=== PATIENT | male | born 1955 | race Caucasian/White ===

== ENCOUNTER 2017-05-27 03:35 | Emergency (ER) | payer MEDICARE, BC ==
[2017-05-27 03:58] LABS: APPEARANCE,URINE Clear (CLEAR); BILIRUBIN,URINE Negative (NEGATIVE); COLOR,URINE Yellow (YELLOW); GLUCOSE, URINE (UA) Negative (NEGATIVE); KETONES,URINE Negative (NEGATIVE); LEUKOCYTE ESTERASE ,URINE Negative (NEGATIVE); NITRATE,URINE Negative (NEGATIVE); OCCULT BLOOD,URINE Negative (NEGATIVE); PROTEIN,URINE Negative (NEGATIVE); UROBILINOGEN,URINE 0.2 mg/dL (0.2-1.0)
[2017-05-27 04:08] LABS: BASOPHILS % (AUTO) 1.6 % (0.0-5.0); EOSINOPHILS % (AUTO) 2.3 % (0.0-8.0); HEMATOCRIT 39.9 % (42-54); LYMPHOCYTES % (AUTO) 20.1 % (21.0-51.0); MEAN CORPUSCULAR HEMOGLOBIN 29.6 pg (27.0-33.0); MEAN CORPUSCULAR HGB CONC 32.6 g/dL (32.0-36.0); MONOCYTES % (AUTO) 7.6 % (3.0-13.0); NEUTROPHILS % (AUTO) 68.4 % (40.0-77.0); PLATELET COUNT (AUTO) 472 K/uL (130-400); RED BLOOD CELL COUNT(AUTO) 4.39 MIL/uL (4.50-6.20); RED CELL DISTRIBUTION WIDTH 15.1 % (11.0-15.5); WHITE BLOOD COUNT (AUTO) 11.7 K/uL (4.8-10.8)
[2017-05-27 04:30] LABS: CREATININE 1.1 mg/dL (0.5-1.5); POTASSIUM 4.7 mmol/L (3.5-5.1)
== END 2017-05-27 06:07 | disposition home or self-care (01) ==
LOC: EDH 03:35
DX: R33.9 Retention of urine, unspecified (principal); I10 Essential (primary) hypertension; R10.9 Unspecified abdominal pain; R11.0 Nausea
CPT/HCPCS: 36415; 51702; 80048; 81003; 85025; 96360

== ENCOUNTER 2017-08-04 01:47 | Emergency (ER) | payer MEDICARE, BC ==
[2017-08-04 03:13] LABS: APPEARANCE,URINE Clear (CLEAR); BILIRUBIN,URINE Negative (NEGATIVE); COLOR,URINE Yellow (YELLOW); GLUCOSE, URINE (UA) Negative (NEGATIVE); KETONES,URINE Negative (NEGATIVE); LEUKOCYTE ESTERASE ,URINE Negative (NEGATIVE); NITRATE,URINE Negative (NEGATIVE); OCCULT BLOOD,URINE Negative (NEGATIVE); PROTEIN,URINE Negative (NEGATIVE); UROBILINOGEN,URINE 0.2 mg/dL (0.2-1.0)
== END 2017-08-04 04:17 | disposition home or self-care (01) ==
LOC: EDH 01:47
DX: R33.9 Retention of urine, unspecified (principal); I10 Essential (primary) hypertension; E78.5 Hyperlipidemia, unspecified
CPT/HCPCS: 51702; 81003

== ENCOUNTER 2018-06-06 08:36 | Day surgery (SDC) | payer MEDICARE ==
[2018-06-05 14:49] LABS: BASOPHILS % (AUTO) 0.8 % (0.0-5.0); EOSINOPHILS % (AUTO) 1.7 % (0.0-8.0); HEMATOCRIT 33.6 % (42-54); LYMPHOCYTES % (AUTO) 12.8 % (21.0-51.0); MEAN CORPUSCULAR HEMOGLOBIN 27.4 pg (27.0-33.0); MEAN CORPUSCULAR HGB CONC 32.4 g/dL (32.0-36.0); MEAN CORPUSCULAR VOLUME 84.4 fL (79-99); MONOCYTES % (AUTO) 8.4 % (3.0-13.0); NEUTROPHILS % (AUTO) 76.3 % (40.0-77.0); RED BLOOD CELL COUNT(AUTO) 3.98 MIL/uL (4.50-6.20); RED CELL DISTRIBUTION WIDTH 16.5 % (11.0-15.5); WHITE BLOOD COUNT (AUTO) 11.4 K/uL (4.8-10.8)
[2018-06-05 14:56] VITALS: BP 149/83
[2018-06-05 15:13] LABS: POTASSIUM 3.9 mmol/L (3.5-5.1)
[2018-06-05 15:14] LABS: PLATELET COUNT (AUTO) 1029 K/uL (130-400)
[2018-06-06] VITALS (20 sets, daily range): BP systolic 90–122; BP diastolic 54–77
[~2018-06-06] VITALS: Ht 172.7 cm; Wt 124.2 kg
[~2018-06-06 08:36] MED LIST: CEFTRIAXONE SODIUM 1 GM IVP SCH; FINA5TAB41 PO; LEVE750T10 PO; LISI-613 PO; SIMV20TA6 PO; TAMS0.4C32 PO; TRIA1CAP6 PO; VITAMIN B12 PO
[2018-06-06] MEDS: GENTAMICIN 80 MG/NS 100 ML PB 100 ML IV SCH ×2 (09:00→12:00)
[2018-06-06] MEDS ORDERED: LACTATED RINGERS 1000ML 1,000 ML IV ONE (09:34)
[2018-06-06] MEDS: CEFTRIAXONE SODIUM 1 GM ONE ×2 (09:56→12:20)
[2018-06-06] MEDS ORDERED: LIDOCAINE PF 2% 5ML ABBOJECT ONE (11:04)
[2018-06-06] MEDS ORDERED: DEXAMETHASONE SOD PHOSPHATE 10MG/ML 1ML VIAL ONE (11:04)
[2018-06-06] MEDS ORDERED: FENTANYL CITRATE PF 50 MCG/1 ML 2ML VIAL ONE ×3 (11:06→13:57)
[2018-06-06] MEDS ORDERED: ONDANSETRON HCL 4 MG/2 ML VIAL ONE (11:06)
[2018-06-06] MEDS ORDERED: MIDAZOLAM HCL 1 MG/ML 2ML VIAL ONE (11:06)
[2018-06-06] MEDS ORDERED: PROPOFOL 10 MG/ML 20ML VIAL IV ONE (11:06)
[2018-06-06] MEDS ORDERED: MEPERIDINE-PF 25 MG/ML SYG ONE (14:08)
[2018-06-06] MEDS ORDERED: PHENAZOPYRIDINE HCL 200 MG TABLET ONE (14:52)
== END 2018-06-06 15:46 | disposition home or self-care (01) ==
LOC: DAH 08:36
PROVIDERS: ATTEND Urology
DX: N40.1 Benign prostatic hyperplasia with lower urinary tract symptoms (principal); R33.8 Other retention of urine; Z98.890 Other specified postprocedural states; I10 Essential (primary) hypertension; G40.909 Epilepsy, unspecified, not intractable, without status epilepticus; G47.30 Sleep apnea, unspecified; Z85.038 Personal history of other malignant neoplasm of large intestine; Z79.899 Other long term (current) drug therapy; Z87.891 Personal history of nicotine dependence; Z93.3 Colostomy status
CPT/HCPCS: 36415 ×2; 52648; 80048; 85025; 85049; A4218; A4340; A4354; A4358; J0696; J1100; J1580; J2001; J2175; J2250; J2405; J2704; J3010 ×3; J7030; J7120

== ENCOUNTER 2018-06-07 21:02 | Inpatient (IN) | payer MEDICARE ==
[~2018-06-07] VITALS: Ht 203.2 cm; Wt 127.9 kg
[~2018-06-07 21:02] MED LIST changes: -CEFTRIAXONE SODIUM 1 GM IVP SCH
[2018-06-07] MEDS ORDERED: SODIUM CHLORIDE 0.9% 1000ML 1,000 ML IV ONE (21:26)
[2018-06-07] MEDS ORDERED: ACETAMINOPHEN 325 MG TAB ONE (21:26)
[2018-06-07] MEDS ORDERED: CEFTRIAXONE SODIUM 1 GM ONE (22:00)
[2018-06-07 22:13] LABS: BASOPHILS % (AUTO) 0.7 % (0.0-5.0); EOSINOPHILS % (AUTO) 0.3 % (0.0-8.0); HEMATOCRIT 32.3 % (42-54); LYMPHOCYTES % (AUTO) 1.1 % (21.0-51.0); MEAN CORPUSCULAR HEMOGLOBIN 27.5 pg (27.0-33.0); MEAN CORPUSCULAR HGB CONC 32.7 g/dL (32.0-36.0); MEAN CORPUSCULAR VOLUME 84.3 fL (79-99); MONOCYTES % (AUTO) 0.6 % (3.0-13.0); NEUTROPHILS % (AUTO) 97.3 % (40.0-77.0); RED BLOOD CELL COUNT(AUTO) 3.83 MIL/uL (4.50-6.20)
[2018-06-07 22:24] LABS: PARTIAL THROMBOPLASTIN TIME 27.3 SEC (26.3-35.5); PROTHROMBIN TIME 10.5 SEC (9.6-11.6)
[2018-06-07 22:25] LABS: CARBON DIOXIDE 27 mmol/L (21-32); CHLORIDE 100 mmol/L (101-111); CREATININE 1.2 mg/dL (0.5-1.5); GLOMERULAR FILTR. RATE CALC 65 mL/min (>60); GLUCOSE,RANDOM 150 mg/dL (70-105); POTASSIUM 3.9 mmol/L (3.5-5.1); SODIUM SERUM 136 mmol/L (136-145); UREA NITROGEN, BLOOD 16 mg/dL (7-18)
[2018-06-07 22:28] LABS: APPEARANCE,URINE Clear (CLEAR); BILIRUBIN,URINE Small (NEGATIVE); GLUCOSE, URINE (UA) Negative (NEGATIVE); KETONES,URINE Negative (NEGATIVE); LEUKOCYTE ESTERASE ,URINE Small (NEGATIVE); NITRATE,URINE Positive (NEGATIVE); OCCULT BLOOD,URINE Large (NEGATIVE); PH,URINE 5.5 (5.0-8.0); PROTEIN,URINE POS 1+ (NEGATIVE)
[2018-06-07 22:30] LABS: PLATELET COUNT (AUTO) 787 K/uL (130-400)
[2018-06-07 22:31] LABS: COLOR,URINE AMBER (YELLOW)
[2018-06-07 22:36] LABS: ALANINE AMINOTRANSFERASE 26 U/L (12-78); ALBUMIN 2.3 g/dL (3.5-5.0); ASPARTATE AMINOTRANSFERASE 20 U/L (10-37); BILIRUBIN,TOTAL 0.3 mg/dL (0.2-1.0); CREATINE KINASE, TOTAL 21 U/L (21-232); MYOGLOBIN 34 ng/mL (10-92); TOTAL PROTEIN, SERUM 7.3 g/dL (6.0-8.3); TROPONIN I < 0.04 ng/mL (0.00-0.06)
[2018-06-07] MEDS ORDERED: SODIUM CHLORIDE 0.9% 1000ML 3,000 ML IV ONE (22:47)
[2018-06-07 22:48] LABS: BACTERIA,URINE None Seen /HPF (None Seen); SQUAMOUS EPITHELIAL CELL,UR Rare /HPF (0-2)
[2018-06-07] MEDS ORDERED: MAGNESIUM HYDROXIDE 30 ML/UDCUP PO PRN (23:30)
[2018-06-07] MEDS ORDERED: ONDANSETRON HCL 4 MG/2 ML VIAL IV PRN (23:30)
[2018-06-07] MEDS: CEFTRIAXONE SODIUM 2 GM VIAL IVP SCH (23:30)
[2018-06-07] MEDS ORDERED: ACETAMINOPHEN 325 MG TAB PO PRN (23:30)
[2018-06-07] MEDS ORDERED: VANCOMYCIN PROTOCOL PER PHARMACY IV PRN (23:30)
[2018-06-08] MEDS ORDERED: VANCOMYCIN PROTOCOL PER PHARMACY IV PRN (00:30)
[2018-06-08] MEDS: VANCOMYCIN 1GM+NS 250ML 250 ML IV SCH ×2 (00:30→01:59)
[2018-06-08 00:49] VITALS: BP 111/66
[2018-06-08] MEDS: CEFTRIAXONE SODIUM 2 GM VIAL IVP SCH (01:40)
[2018-06-08] MEDS: SODIUM CHLORIDE 0.9% 1000ML 1,000 ML IV SCH ×4 (03:57→20:14)
[2018-06-08 04:01] VITALS: BP 111/64
[2018-06-08 07:08] LABS: BASOPHILS % (AUTO) 0.3 % (0.0-5.0); EOSINOPHILS % (AUTO) 0.2 % (0.0-8.0); HEMATOCRIT 28.1 % (42-54); LYMPHOCYTES % (AUTO) 7.1 % (21.0-51.0); MEAN CORPUSCULAR HGB CONC 32.1 g/dL (32.0-36.0); MEAN CORPUSCULAR VOLUME 84.2 fL (79-99); MONOCYTES % (AUTO) 3.3 % (3.0-13.0); NEUTROPHILS % (AUTO) 89.1 % (40.0-77.0); RED BLOOD CELL COUNT(AUTO) 3.34 MIL/uL (4.50-6.20); RED CELL DISTRIBUTION WIDTH 16.6 % (11.0-15.5); WHITE BLOOD COUNT (AUTO) 21.5 K/uL (4.8-10.8)
[2018-06-08 07:16] LABS: PLATELET COUNT (AUTO) 795 K/uL (130-400)
[2018-06-08 07:19] VITALS: BP 103/61
[2018-06-08 07:32] LABS: ALBUMIN 1.9 g/dL (3.5-5.0); BILIRUBIN,TOTAL 0.2 mg/dL (0.2-1.0); CREATININE 1.1 mg/dL (0.5-1.5); POTASSIUM 3.9 mmol/L (3.5-5.1); TOTAL PROTEIN, SERUM 6.2 g/dL (6.0-8.3)
[2018-06-08] MEDS: LISINOPRIL 20 MG TABLET PO SCH (09:02)
[2018-06-08] MEDS: CYANOCOBALAMIN (VITAMIN B-12) 1,000 MCG TABLET PO SCH ×2 (09:02→20:13)
[2018-06-08] MEDS: ENOXAPARIN SODIUM 40 MG/0.4 ML SYRINGE SQ SCH (09:02)
[2018-06-08] MEDS: TRIAMTERENE/HYDROCHLOROTHIAZIDE 37.5/25 MG CAP PO SCH (09:02)
[2018-06-08] MEDS: LEVETIRACETAM 500 MG TABLET PO SCH ×2 (09:02→20:13)
[2018-06-08] MEDS: FINASTERIDE 5 MG TABLET PO SCH (09:02)
[2018-06-08] MEDS: PANTOPRAZOLE SODIUM 40 MG TABLET.DR PO SCH (09:03)
[2018-06-08 11:23] VITALS: BP 131/67
[2018-06-08] MEDS ORDERED: COMPOUND IV REFRIGERATED 1 EACH IVSOLN MISC PRN (11:30)
[2018-06-08] MEDS: ZOSYN 3.375GM+NS 50ML 50 ML IV SCH ×2 (12:22→20:13)
[2018-06-08] MEDS: VANCOMYCIN 1.5 GM in SODIUM CHLORIDE 0.9% 250 ML IV SCH (14:33)
[2018-06-08 16:10] VITALS: BP 153/77
[2018-06-08] MEDS ORDERED: ACETAMINOPHEN 325 MG TAB PO PRN (17:45)
[2018-06-08] MEDS: MORPHINE SULFATE 2 MG/ML 1ML SYG IVP PRN (18:47)
[2018-06-08 20:00] VITALS: BP 122/68
[2018-06-08] MEDS: SIMVASTATIN 20 MG TABLET PO SCH (20:12)
[2018-06-08] MEDS: TAMSULOSIN HCL 0.4 MG CAP.ER.24H PO SCH (20:13)
[2018-06-09] VITALS (7 sets, daily range): BP systolic 117–152; BP diastolic 70–83
[2018-06-09] MEDS: MORPHINE SULFATE 2 MG/ML 1ML SYG IVP PRN ×2 (00:36→09:15)
[2018-06-09] MEDS: SODIUM CHLORIDE 0.9% 1000ML 1,000 ML IV SCH ×4 (01:36→14:10)
[2018-06-09] MEDS: VANCOMYCIN 1.5 GM in SODIUM CHLORIDE 0.9% 250 ML IV SCH ×2 (02:16→14:29)
[2018-06-09 04:06] LABS: MEAN CORPUSCULAR HEMOGLOBIN 27.3 pg (27.0-33.0); MEAN CORPUSCULAR HGB CONC 32.6 g/dL (32.0-36.0); MEAN CORPUSCULAR VOLUME 83.6 fL (79-99); NUCLEATED RED BLOOD CELLS 0.1 % (0.0-0.19); RED BLOOD CELL COUNT(AUTO) 3.23 MIL/uL (4.50-6.20); RED CELL DISTRIBUTION WIDTH 16.6 % (11.0-15.5); WHITE BLOOD COUNT (AUTO) 11.9 K/uL (4.8-10.8)
[2018-06-09 04:32] LABS: CRP QUANTITATIVE 225.2 mg/L (0.00-9.0); POTASSIUM 3.9 mmol/L (3.5-5.1)
[2018-06-09 04:37] LABS: PLATELET COUNT (AUTO) 733 K/uL (130-400)
[2018-06-09] MEDS: ZOSYN 3.375GM+NS 50ML 50 ML IV SCH ×3 (05:36→20:52)
[2018-06-09] MEDS: TRIAMTERENE/HYDROCHLOROTHIAZIDE 37.5/25 MG CAP PO SCH ×2 (08:48→09:14)
[2018-06-09] MEDS: LISINOPRIL 20 MG TABLET PO SCH (08:50)
[2018-06-09] MEDS: FINASTERIDE 5 MG TABLET PO SCH (08:50)
[2018-06-09] MEDS: PANTOPRAZOLE SODIUM 40 MG TABLET.DR PO SCH (08:50)
[2018-06-09] MEDS: CYANOCOBALAMIN (VITAMIN B-12) 1,000 MCG TABLET PO SCH ×2 (08:50→20:53)
[2018-06-09] MEDS: LEVETIRACETAM 500 MG TABLET PO SCH ×2 (08:51→20:54)
[2018-06-09] MEDS: ENOXAPARIN SODIUM 40 MG/0.4 ML SYRINGE SQ SCH (09:20)
[2018-06-09] MEDS: IRON SUCROSE COMPLEX 100 MG in SODIUM CHLORIDE 0.9% 50 ML IV SCH (17:30)
[2018-06-09] MEDS ORDERED: COMPOUND IV MISC 1 EACH IVSOLN MISC PRN (18:45)
[2018-06-09] MEDS: TAMSULOSIN HCL 0.4 MG CAP.ER.24H PO SCH (20:52)
[2018-06-09] MEDS: SIMVASTATIN 20 MG TABLET PO SCH (20:53)
[2018-06-09] MEDS ORDERED: EPOETIN ALFA 10,000 UNIT/ML VIAL SQ ONE (21:00)
[2018-06-09] MEDS ORDERED: PHARMACY COMMUNICATION MISC SCH (21:00)
[2018-06-09] MEDS ORDERED: BACITRACIN 28.4 GM OINT TP SCH (21:00)
[2018-06-09] MEDS ORDERED: IBUPROFEN 800 MG TAB PO PRN (23:45)
[2018-06-10] MEDS: SODIUM CHLORIDE 0.9% 1000ML 1,000 ML IV SCH (02:03)
[2018-06-10] MEDS: VANCOMYCIN 1.5 GM in SODIUM CHLORIDE 0.9% 250 ML IV SCH (02:12)
[2018-06-10 03:00] VITALS: BP 134/76
[2018-06-10 03:44] LABS: HEMATOCRIT 27.2 % (42-54); MEAN CORPUSCULAR HEMOGLOBIN 26.5 pg (27.0-33.0); NUCLEATED RED BLOOD CELLS 0.1 % (0.0-0.19); PLATELET COUNT (AUTO) 663 K/uL (130-400); RED BLOOD CELL COUNT(AUTO) 3.28 MIL/uL (4.50-6.20); RED CELL DISTRIBUTION WIDTH 16.9 % (11.0-15.5); WHITE BLOOD COUNT (AUTO) 10.2 K/uL (4.8-10.8)
[2018-06-10 03:56] LABS: ALBUMIN 1.9 g/dL (3.5-5.0); CREATININE 1.1 mg/dL (0.5-1.5); POTASSIUM 3.6 mmol/L (3.5-5.1)
[2018-06-10 04:15] LABS: CRP QUANTITATIVE 167.5 mg/L (0.00-9.0)
[2018-06-10] MEDS: ZOSYN 3.375GM+NS 50ML 50 ML IV SCH (04:45)
[2018-06-10 08:02] VITALS: BP 132/86
[2018-06-10] MEDS ORDERED: SULF1TAB42 PO (08:43)
[2018-06-10] MEDS ORDERED: LEVO500T2 PO (08:43)
[2018-06-10] MEDS ORDERED: LEVOFLOXACIN 500 MG TABLET PO SCH (09:00)
[2018-06-10] MEDS ORDERED: SULFAMETHOX-TMP DS 800/160 TAB PO SCH (09:00)
[2018-06-10] MEDS: FINASTERIDE 5 MG TABLET PO SCH (09:08)
[2018-06-10] MEDS: PANTOPRAZOLE SODIUM 40 MG TABLET.DR PO SCH (09:08)
[2018-06-10] MEDS: TRIAMTERENE/HYDROCHLOROTHIAZIDE 37.5/25 MG CAP PO SCH (09:09)
[2018-06-10] MEDS: LEVETIRACETAM 500 MG TABLET PO SCH (09:09)
[2018-06-10] MEDS: CYANOCOBALAMIN (VITAMIN B-12) 1,000 MCG TABLET PO SCH (09:09)
[2018-06-10] MEDS: LISINOPRIL 20 MG TABLET PO SCH (09:09)
[2018-06-10] MEDS: ENOXAPARIN SODIUM 40 MG/0.4 ML SYRINGE SQ SCH (09:12)
[2018-06-10] MEDS: IRON SUCROSE COMPLEX 100 MG in SODIUM CHLORIDE 0.9% 50 ML IV SCH (09:15)
[2018-06-10] MEDS ORDERED: LEVO750T46 PO (11:30)
[2018-06-10 11:48] VITALS: BP 127/85
== END 2018-06-10 16:10 | disposition home or self-care (01) | DRG 698 ==
LOC: EDH 21:02 → EDHIP 23:10 → 2AH 06-08 00:21
PROVIDERS: ADMIT Internal Medicine; ATTEND Internal Medicine
DX: T83.511A Infection and inflammatory reaction due to indwelling urethral catheter, initial encounter (principal); A41.9 Sepsis, unspecified organism; R65.20 Severe sepsis without septic shock; N17.9 Acute kidney failure, unspecified; Z68.41 Body mass index [BMI] 40.0-44.9, adult; E44.0 Moderate protein-calorie malnutrition; C20 Malignant neoplasm of rectum; E66.01 Morbid (severe) obesity due to excess calories; E86.1 Hypovolemia; D50.9 Iron deficiency anemia, unspecified; E78.5 Hyperlipidemia, unspecified; G40.909 Epilepsy, unspecified, not intractable, without status epilepticus; G47.00 Insomnia, unspecified; I10 Essential (primary) hypertension; K59.00 Constipation, unspecified; N39.0 Urinary tract infection, site not specified; N40.0 Benign prostatic hyperplasia without lower urinary tract symptoms; Y84.6 Urinary catheterization as the cause of abnormal reaction of the patient, or of later complication, without mention of misadventure at the time of the procedure; Z80.1 Family history of malignant neoplasm of trachea, bronchus and lung; Z85.048 Personal history of other malignant neoplasm of rectum, rectosigmoid junction, and anus; Z85.46 Personal history of malignant neoplasm of prostate; Z90.81 Acquired absence of spleen; Z92.21 Personal history of antineoplastic chemotherapy; Z92.3 Personal history of irradiation; Z93.3 Colostomy status; Z96.642 Presence of left artificial hip joint; Z96.659 Presence of unspecified artificial knee joint; N30.90 Cystitis, unspecified without hematuria
CPT/HCPCS: 36415; 71045; 80048; 80053; 80202; 80339; 81001; 82040; 82550; 83540; 83550; 83605; 83874; 84484; 85025; 85027; 85610; 85730; 86140; 87040; 87077; 87088; 87186; 93005; 99291; A5061; J0696; J0885; J1650; J1756; J2405; J2543; J3370; J7030

== ENCOUNTER → 2020-05-04 | Outpatient (CLI) | payer MEDICARE ==
[~2020-05-04] MED LIST changes: +LEVO750T46 PO; +SIMV-43 PO; -SIMV20TA6 PO
== END | disposition home or self-care (01) ==
LOC: RAH 11:13
DX: Z01.818 Encounter for other preprocedural examination (principal)
CPT/HCPCS: 71046

== ENCOUNTER 2020-07-30 17:09 | Emergency (ER) | payer MEDICARE | END 2020-07-30 18:47 | disposition home or self-care (01) | LOC: EDSEX 17:09 → EDH 17:09 | DX: T83.091A Other mechanical complication of indwelling urethral catheter, initial encounter (principal); I10 Essential (primary) hypertension; Z85.038 Personal history of other malignant neoplasm of large intestine; Z87.891 Personal history of nicotine dependence | CPT/HCPCS: 99281 ==

== ENCOUNTER 2020-08-05 06:22 | Day surgery (SDC) | payer MEDICARE ==
[2020-08-02 12:14] LABS: BASOPHILS % (AUTO) 0.9 % (0.0-5.0); EOSINOPHILS % (AUTO) 7.3 % (0.0-8.0); HEMATOCRIT 36.8 % (42-54); LYMPHOCYTES % (AUTO) 19.5 % (21.0-51.0); MEAN CORPUSCULAR HEMOGLOBIN 29.6 pg (27.0-33.0); MEAN CORPUSCULAR HGB CONC 31.3 g/dL (32.0-36.0); MEAN CORPUSCULAR VOLUME 94.8 fL (79-99); MONOCYTES % (AUTO) 10.5 % (3.0-13.0); NEUTROPHILS % (AUTO) 61.3 % (40.0-77.0); PLATELET COUNT (AUTO) 450 K/uL (130-400); RED BLOOD CELL COUNT(AUTO) 3.88 MIL/uL (4.50-6.20); RED CELL DISTRIBUTION WIDTH 17.8 % (11.0-15.5); WHITE BLOOD COUNT (AUTO) 9.2 K/uL (4.8-10.8)
[2020-08-02 12:29] LABS: CREATININE 1.4 mg/dL (0.5-1.5); POTASSIUM 4.9 mmol/L (3.5-5.1)
[2020-08-04 14:29] VITALS: BP 146/74
[~2020-08-05] VITALS: Ht 170.2 cm; Wt 142.6 kg
[2020-08-05] VITALS (19 sets, daily range): BP systolic 118–143; BP diastolic 61–85
[~2020-08-05 06:22] MED LIST changes: -LEVO750T46 PO; -LISI-613 PO; +LISI10TA7 PO; +PREG150C46 PO
[2020-08-05] MEDS ORDERED: LACTATED RINGERS 1000ML 1,000 ML IV ONE (06:43)
[2020-08-05] MEDS ORDERED: CEFTRIAXONE SODIUM 1 GM ONE (06:43)
[2020-08-05] MEDS ORDERED: CEFTRIAXONE SODIUM 1 GM IVP ONE (08:00)
[2020-08-05] MEDS ORDERED: PROPOFOL 10 MG/ML 20ML VIAL IV ONE (08:02)
[2020-08-05] MEDS ORDERED: LIDOCAINE PF 2% 5ML ABBOJECT ONE (08:02)
[2020-08-05] MEDS ORDERED: ROCURONIUM 10MG/1ML SYR 10 MG/ML ML ONE (08:02)
[2020-08-05] MEDS ORDERED: FENTANYL CITRATE PF 50 MCG/1 ML 2ML VIAL ONE (08:03)
[2020-08-05] MEDS ORDERED: IOHEXOL-350 50ML VIAL IV ONE (08:05)
[2020-08-05] MEDS ORDERED: MIDAZOLAM HCL 1 MG/ML 2ML VIAL ONE (08:27)
[2020-08-05] MEDS ORDERED: PHENAZOPYRIDINE HCL 200 MG TABLET ONE (09:25)
== END 2020-08-05 11:23 | disposition home or self-care (01) ==
LOC: EDSEX → DAH 06:22
PROVIDERS: ATTEND Urology
DX: N28.9 Disorder of kidney and ureter, unspecified (principal); N13.30 Unspecified hydronephrosis; E66.01 Morbid (severe) obesity due to excess calories; I10 Essential (primary) hypertension; Z87.891 Personal history of nicotine dependence; K21.9 Gastro-esophageal reflux disease without esophagitis; E78.00 Pure hypercholesterolemia, unspecified; Z85.038 Personal history of other malignant neoplasm of large intestine; G40.909 Epilepsy, unspecified, not intractable, without status epilepticus; Z79.899 Other long term (current) drug therapy; Z20.828 Contact with and (suspected) exposure to other viral communicable diseases
CPT/HCPCS: 36415; 52332; 74420; 80048; 85025; 87426; 93005; A4215; A4221; A4222; A4223 ×2; A4358 ×2; A4510 ×2; A4600 ×2; A4663; A6260; C1769; C2617; J0696; J2001; J2250; J2704; J3010; J7030; J7120 ×2; Q9967; U0003

== ENCOUNTER 2020-12-02 06:26 | Day surgery (SDC) | payer MEDICARE ==
[2020-11-29 12:13] LABS: BASOPHILS % (AUTO) 0.4 % (0.0-5.0); EOSINOPHILS % (AUTO) 2.2 % (0.0-8.0); HEMATOCRIT 30.3 % (42-54); LYMPHOCYTES % (AUTO) 11.9 % (21.0-51.0); MEAN CORPUSCULAR HEMOGLOBIN 30.3 pg (27.0-33.0); MEAN CORPUSCULAR HGB CONC 31.4 g/dL (32.0-36.0); MEAN CORPUSCULAR VOLUME 96.5 fL (79-99); MONOCYTES % (AUTO) 11.4 % (3.0-13.0); NEUTROPHILS % (AUTO) 73.2 % (40.0-77.0); PLATELET COUNT (AUTO) 563 K/uL (130-400); RED BLOOD CELL COUNT(AUTO) 3.14 MIL/uL (4.50-6.20); RED CELL DISTRIBUTION WIDTH 18.8 % (11.0-15.5); WHITE BLOOD COUNT (AUTO) 14.6 K/uL (4.8-10.8)
[2020-11-29 12:21] LABS: CREATININE 2.3 mg/dL (0.5-1.5); POTASSIUM 4.1 mmol/L (3.5-5.1)
[2020-12-01 11:02] VITALS: BP 116/71
[2020-12-02] VITALS (16 sets, daily range): BP systolic 99–139; BP diastolic 50–86
[~2020-12-02] VITALS: Ht 170.2 cm; Wt 134.0 kg
[~2020-12-02 06:26] MED LIST changes: +ASCO500C18 PO; +CEFTRIAXONE SODIUM 1 GM IVP SCH; +LISI10TA24 PO; -LISI10TA7 PO; +MULT-1367 PO; +VITA-164 PO; +vitamin d3 PO
[2020-12-02] MEDS ORDERED: LACTATED RINGERS 1000ML 1,000 ML IV ONE (06:33)
[2020-12-02] MEDS ORDERED: SUCCINYLCHOLINE 200MG/10ML SYR ONE (07:12)
[2020-12-02] MEDS ORDERED: DEXAMETHASONE SOD PHOSPHATE 10MG/ML 1ML VIAL ONE (07:12)
[2020-12-02] MEDS ORDERED: LIDOCAINE PF 2% 5ML ABBOJECT ONE (07:12)
[2020-12-02] MEDS ORDERED: MIDAZOLAM HCL 1 MG/ML 2ML VIAL ONE (07:12)
[2020-12-02] MEDS ORDERED: NEOSTIGMINE 5MG/5ML SYR IV ONE (07:13)
[2020-12-02] MEDS ORDERED: FENTANYL CITRATE PF 50 MCG/1 ML 2ML VIAL ONE (07:13)
[2020-12-02] MEDS ORDERED: ROCURONIUM 10MG/1ML SYR 10 MG/ML ML ONE (07:13)
[2020-12-02] MEDS ORDERED: GLYCOPYRROLATE 1 MG/5 ML SYRINGE ONE (07:13)
[2020-12-02] MEDS ORDERED: ONDANSETRON HCL 4 MG/2 ML VIAL ONE (07:13)
[2020-12-02] MEDS ORDERED: PROPOFOL 10 MG/ML 20ML VIAL IV ONE (07:13)
[2020-12-02] MEDS ORDERED: IOHEXOL-350 50ML VIAL IV ONE (07:20)
[2020-12-02] MEDS ORDERED: EPHEDRINE SULFATE 50 MG/ML AMPULE ONE (07:36)
[2020-12-02] MEDS ORDERED: PHENYLEPHRINE HCL 10 MG/ML 1ML VIAL IV ONE (07:40)
== END 2020-12-02 10:50 | disposition home or self-care (01) ==
LOC: DAH 06:26
PROVIDERS: ATTEND Urology
DX: N13.30 Unspecified hydronephrosis (principal); I12.9 Hypertensive chronic kidney disease with stage 1 through stage 4 chronic kidney disease, or unspecified chronic kidney disease; N18.9 Chronic kidney disease, unspecified; D63.1 Anemia in chronic kidney disease; G47.33 Obstructive sleep apnea (adult) (pediatric); E66.01 Morbid (severe) obesity due to excess calories; Z85.038 Personal history of other malignant neoplasm of large intestine; Z20.828 Contact with and (suspected) exposure to other viral communicable diseases; Z79.899 Other long term (current) drug therapy
CPT/HCPCS: 36415; 52332; 74420; 80048; 85025; 93005; A4215; A4221; A4222; A4223; A4344; A4358; A4510; A4600; A4663; A6260; C1758; C1769; C2617; C9803; J0330; J0696; J1100; J2001; J2250; J2370; J2405; J2704; J2710; J3010; J3490 ×2; J7120 ×2; Q9967; U0003